=== PATIENT | male | born 1945 | race Caucasian/White ===

== ENCOUNTER 2016-10-20 14:56 | Emergency (ER) | payer MEDICAID, MEDICARE ==
[~2016-10-20] VITALS: Ht 172.7 cm; Wt 84.0 kg
[~2016-10-20 14:56] MED LIST: IBUP400T22 PO; QUET25TA26
[2016-10-20 14:59] VITALS: Ht 172.7 cm; Wt 84.0 kg
[2016-10-20] MEDS ORDERED: SOD CHLORIDE 0.9% 1,000 ML IV STA (16:34)
[2016-10-20 16:56] LABS: BASOPHIL # 0.1 10^3/ul (0.0-0.1); BASOPHILS % 0.6 % (0.0-2.0); EOSINOPHILS # 0.3 10^3/ul (0.0-0.5); EOSINOPHILS % 3.6 % (0.0-7.0); HEMATOCRIT 40.8 % (42.0-52.0); LYMPHOCYTES # 1.9 10^3/ul (0.8-2.9); LYMPHOCYTES % 23.7 % (15.0-51.0); MEAN CORPUSCULAR HEMOGLOBIN 31.9 pg (29.0-33.0); MEAN CORPUSCULAR HGB CONC 34.3 g/dl (32.0-37.0); MEAN CORPUSCULAR VOLUME 92.9 fl (82.0-101.0); MEAN PLATELET VOLUME 10.4 fl (7.4-10.4); MONOCYTE # 1.1 10^3/ul (0.3-0.9); MONOCYTES % 14.2 % (0.0-11.0); NEUTROPHILS % 57.4 % (39.0-77.0); PLATELET COUNT 164 10^3/UL (140-415); RED BLOOD COUNT 4.39 10^6/ul (4.70-6.10); RED CELL DISTRIBUTION WIDTH 12.8 % (11.5-14.5); WHITE BLOOD COUNT 7.8 10^3/ul (4.8-10.8)
[2016-10-20 16:59] LABS: ADD UMIC NO; UR ASCORBIC ACID NEGATIVE (NEGATIVE); UR BILIRUBIN (Dip) NEGATIVE (NEGATIVE); UR BLOOD (Dip) NEGATIVE (NEGATIVE); UR CLARITY CLEAR (CLEAR); UR COLOR YELLOW (YELLOW); UR GLUCOSE (Dip) NEGATIVE (NEGATIVE); UR KETONES (Dip) NEGATIVE (NEGATIVE); UR LEUKOCYTE ESTERASE (Dip) NEGATIVE Leu/ul (NEGATIVE); UR NITRITE (Dip) NEGATIVE (NEGATIVE); UR SPECIFIC GRAVITY (Dip) 1.015 (1.003-1.030); UR TOTAL PROTEIN (Dip) NEGATIVE (NEGATIVE); UR UROBILINOGEN (Dip) 1+ mg/dL (NEGATIVE)
--- NOTE | 2016-10-20 17:04 | RADRPT ---
PROCEDURE: XR Chest. CLINICAL INDICATION: Shortness of breath. TECHNIQUE: A single portable view of the chest was obtained. COMPARISON: None FINDINGS: The aorta is tortuous and atherosclerotic. The cardiomediastinal silhouette is otherwise within nor mal limits. Mild linear atelectasis in the left lung base is seen. The remaining lungs and pleural s paces are clear. The soft tissues and osseous structures demonstrate benign age related senescent c hanges. IMPRESSION: No acute cardiopulmonary disease. RPTAT: HPNM Physician Adri Date Time Electronically viewed and signed by Alex Mendoza Physician on 10/20/2016 17:03 /
[2016-10-20 17:16] LABS: INR 1.01; PROTIME 13.3 Sec (12.2-14.2)
[2016-10-20 17:21] LABS: ALANINE AMINOTRANSFERASE 20 IU/L (13-69); ALBUMIN 3.4 g/dl (3.3-4.9); ALBUMIN/GLOBULIN RATIO 1.17; ALKALINE PHOSPHATASE 37 IU/L (42-121); ANION GAP 11 (8-16); ASPARTATE AMINO TRANSFERASE 21 IU/L (15-46); BILIRUBIN,INDIRECT 0.2 mg/dl (0-1.1); BILIRUBIN,TOTAL 0.2 mg/dl (0.2-1.3); BLOOD UREA NITROGEN 15 mg/dl (7-20); CALCIUM 8.8 mg/dl (8.4-10.2); CARBON DIOXIDE 25 mmol/L (21-31); CHLORIDE 107 mmol/L (97-110); CREATININE 0.85 mg/dl (0.61-1.24); GLUCOSE 103 mg/dl (70-220); POTASSIUM 4.6 mmol/L (3.5-5.1); SODIUM 138 mmol/L (135-144); TOTAL PROTEIN 6.3 g/dl (6.1-8.1)
[2016-10-20] MEDS ORDERED: TRAZ50TA18 PO (17:26)
[2016-10-20] MEDS ORDERED: BENZ0.5T3 PO (17:26)
[2016-10-20] MEDS ORDERED: DIVA500T15 PO (17:27)
[2016-10-20] MEDS ORDERED: HYDR-905 PO (17:28)
[2016-10-20] MEDS ORDERED: LOSA50TA6 PO (17:28)
[2016-10-20] MEDS ORDERED: OLAN15TA7 PO (17:28)
[2016-10-20] MEDS ORDERED: CARB1TAB46 PO (17:30)
[2016-10-20 17:48] LABS: TROPONIN-I < 0.012 ng/ml (0.00-0.12)
[2016-10-20] MEDS ORDERED: LORA-441 PO (17:50)
[2016-10-20] MEDS ORDERED: LORAZEPAM 0.5 MG TAB PO ONE (18:00)
--- NOTE | 2016-10-20 18:01 | ERD ---
ER Documentation Chief Complaint Date/Time DATE: 10/20/16 TIME: 17:58 Chief Complaint SHAKING X2 MTHS, SEEN BY PMD, BLOOD TEST NORMAL. HPI 71-year-old man complaining of anxiety and shakiness, he has a history of anxiety and ran out of lorazepam. Patient denies seizure activity, no fevers or chills, no chest pain, no dysuria, no abdominal pain, no vomiting or diarrhea. ROS All systems reviewed and are negative except as per history of present illness. Medications Home Meds Active Scripts Lorazepam* (Ativan*) 0.5 Mg Tablet, 0.5 MG PO Q8H Y for ANXIETY, #15 TAB Prov:SHIRA MCCORD MD 10/20/16 Reported Medications Carbidopa/Levodopa (CARBIDOPA-LEVO 25-100 MG ODT) 1 Each Tab.rapdis, 1 TAB PO, # 90 TAB 10/20/16 Losartan Potassium* (Losartan Potassium*) 50 Mg Tablet, 50 MG PO, TAB 10/20/16 Olanzapine* (Olanzapine*) 15 Mg Tablet, 15 MG PO, TAB 10/20/16 Hydrocodone/Acetaminophen ([place] 7.5-325 Tablet) 1 Each Tablet, 1 EACH PO Q6H Y for NEEDED, TAB 10/20/16 Divalproex Sodium* (Divalproex ER*) 500 Mg Tab.er.24h, 500 MG PO, #30 TAB.SA 10/20/16 Trazodone Hcl* (Trazodone Hcl*) 50 Mg Tablet, 50 MG PO QHS, #30 TAB 10/20/16 Benztropine Mesylate* (Benztropine Mesylate*) 0.5 Mg Tablet, 0.5 MG PO, TAB 10/20/16 Discontinued Reported Medications Quetiapine Fumarate* (Seroquel*) 25 Mg Tablet 03/13/09 Discontinued Scripts Ibuprofen* (Motrin*) 400 Mg Tab, 400 MG PO Q8, #12 TAB Prov:GOPAL TRAN DO 02/12/15 Allergies Allergies: Coded Allergies: haloperidol (Verified Allergy, Mild, HYPERACTIVE, 10/20/16) Penicillins (Unverified Allergy, Unknown, 10/20/16) PMhx/Soc Anxiety, psychiatric illness, hypertension History of Surgery: No Anesthesia Reaction: No Hx Neurological Disorder: No Hx Respiratory Disorders: No Hx Cardiac Disorders: No Hx Psychiatric Problems: Yes (bipolar) Hx Miscellaneous Medical Probl: No Hx Alcohol Use: No Hx Substance Use: Yes (crystal meth) Hx Tobacco Use: Yes (MARIJUANA and cigarettes) Smoking Status: Current every day smoker FmHx Family History: No diabetes Physical Exam Vitals Vital Signs Date Time Temp Pulse Resp B/P Pulse Ox O2 Delivery O2 Flow Rate FiO2 10/20/16 16:30 98.5 98 18 125/83 99 Room Air 10/20/16 14:59 99.0 115 18 135/89 99 Physical Exam GENERAL: Well-developed, well-nourished, well-hydrated, Appears anxious HEENT: Moist mucous membranes, pink conjunctiva, no cervical spine tenderness or step-off deformities, no goiter, no jaundice or icterus, extraocular movements intact without pain. No submandibular induration, and no pharyngeal erythema NEURO: Alert and oriented 3, cranial nerves II through XII intact bilaterally, pupils equal round reactive to light, no focal deficits or facial asymmetry, sensation intact distally Strength 5/5 in upper and lower extremities bilaterally CARDIAC: Regular rate and rhythm, no murmurs rubs or gallops LUNGS: Clear bilaterally no wheezing crackles or stridor ABDOMEN: Soft nontender, no guarding, no rigidity, no rebound, no psoas sign no obturator sign. Normoactive bowel sounds SKIN: Warm and dry to touch, no abrasions, contusions, or hematomas, no lacerations, no ecchymosis, no target lesions, and without ulcers EXTREMITIES: No clubbing cyanosis or edema, calves are bilaterally symmetrical, no Homans sign, no popliteal cord sign. Distal pulses equal and bilateral PSYCH:Appears anxious Result Diagram: 10/20/16 1545 10/20/16 1545 Results 24 hrs Laboratory Tests Test 10/20/16 15:45 White Blood Count 7.810^3/ul Red Blood Count 4.3910^6/ul Hemoglobin 14.0g/dl Hematocrit 40.8% Mean Corpuscular Volume 92.9fl Mean Corpuscular Hemoglobin 31.9pg Mean Corpuscular Hemoglobin Concent 34.3g/dl Red Cell Distribution Width 12.8% Platelet Count 01093^3/UL Mean Platelet Volume 10.4fl Neutrophils % 57.4% Lymphocytes % 23.7% Monocytes % 14.2% Eosinophils % 3.6% Basophils % 0.6% Nucleated Red Blood Cells % 0.0/100WBC Neutrophils # (Manual) 4.510^3/ul Lymphocytes # 1.910^3/ul Monocytes # 1.110^3/ul Eosinophils # 0.310^3/ul Basophils # 0.110^3/ul Nucleated Red Blood Cells # 0.010^3/ul Prothrombin Time 13.3Sec Prothrombin Time Ratio 1.0 INR International Normalized Ratio 1.01 Urine Color YELLOW Urine Clarity CLEAR Urine pH 7.0 Urine Specific [place] 1.015 Urine Ketones NEGATIVEmg/dL Urine Nitrite NEGATIVEmg/dL Urine Bilirubin NEGATIVEmg/dL Urine Urobilinogen 1+mg/dL Urine Leukocyte Esterase NEGATIVELeu/ul Urine Hemoglobin NEGATIVEmg/dL Urine Glucose NEGATIVEmg/dL Urine Total Protein NEGATIVEmg/dl Sodium Level 138mmol/L Potassium Level 4.6mmol/L Chloride Level 107mmol/L Carbon Dioxide Level 25mmol/L Anion Gap 11 Blood Urea Nitrogen 15mg/dl Creatinine 0.85mg/dl Glucose Level 103mg/dl Calcium Level 8.8mg/dl Total Bilirubin 0.2mg/dl Direct Bilirubin 0.00mg/dl Indirect Bilirubin 0.2mg/dl Aspartate Amino Transf (AST/SGOT) 21IU/L Alanine Aminotransferase (ALT/SGPT) 20IU/L Alkaline Phosphatase 37IU/L Troponin I < 0.012ng/ml Total Protein 6.3g/dl Albumin 3.4g/dl Globulin 2.90g/dl Albumin/Globulin Ratio 1.17 Lipase 55U/L Current Medications Medications (Trade) Dose Ordered Sig/Xavier Route PRN Reason Start Time Stop Time Status Last Admin Dose Admin Sodium Chloride (NS) 1,000 ml @ 1,000 mls/hr Q1H STAT IV 10/20/16 16:34 10/20/16 17:33 DC 10/20/16 17:08 Lorazepam (Ativan) 0.5 mg ONCE ONCE PO 10/20/16 18:00 10/20/16 18:01 DC 10/20/16 17:59 Procedures/MDM IV line was established patient was placed on endoscopy technican rhythm strip revealed a sinus rhythm at about 80 bpm. Patient was afebrile. EKG performed, read by me: 78 bpm, normal sinus rhythm, normal axis, no acute ST segment changes, narrow QRS complex, with good R-wave progression in precordial leads. I administered 1 L normal saline intravenously and lorazepam 0.5 mg p.o. for his symptoms with good effect. CBC and electrolytes were normal, liver function tests normal, troponin negative.Urine analysis was negative for infection. Differential diagnoses considered, included but not limited to acute coronary syndrome, pulmonary embolism, aortic dissection, abdominal aortic aneurysm, sepsis, stroke, meningitis, encephalitis, pneumonia, appendicitis, cholecystitis , bowel obstruction, pyelonephritis, nephrolithiasis, cystitis, as well as metabolic, hematologic, and electrolyte abnormalities. As well as abscess, cellulitis, fractures, and dislocations. Patient feels much better at this time, and vital signs are normal, symptoms have improved. I did give strict instructions to return to the ED if symptoms continue or worsen, patient will otherwise follow-up with primary care physician. Patient understood instructions and agreed to plan. Disclaimer: Inadvertent spelling and grammatical errors are likely due to EHR/ dictation software use and do not reflect on the overall quality of patient care. Also, please note that the electronic time recorded on this note does not necessarily reflect the actual time of the patient encounter. Departure Diagnosis: Primary Impression: Anxiety Condition: Good Patient Instructions: Anxiety Reaction SHIRA MCCORD MD Oct 20, 2016 18:01
[2016-10-20 18:52] VITALS: BP 132/80; PULSE 94; RESP 20; TEMP 98.5
== END 2016-10-20 18:54 | disposition home or self-care (01) ==
LOC: E/R 14:56
DX: F41.9 Anxiety disorder, unspecified (principal); F17.210 Nicotine dependence, cigarettes, uncomplicated; I10 Essential (primary) hypertension
CPT/HCPCS: 36415; 71010; 80053; 81003; 83690; 84484; 85025; 85610; 87086; 93005; 99285; J7030

== ENCOUNTER 2017-06-26 10:53 | Emergency (ER) | END 2017-06-26 15:50 | disposition home or self-care (01) ==

== ENCOUNTER 2017-06-30 10:40 | Emergency (ER) | END 2017-06-30 16:57 | disposition home or self-care (01) ==

== ENCOUNTER 2017-07-03 16:33 | Observation (INO) | END 2017-07-06 13:45 | disposition home or self-care (01) ==

== ENCOUNTER 2017-07-12 07:14 | Emergency (ER) | END 2017-07-12 10:02 | disposition home or self-care (01) ==